=== PATIENT | male | born 1975 | race Caucasian/White ===

== ENCOUNTER 2023-01-01 18:26 | Emergency (ER) | payer SELFPAY ==
[~2023-01-01] VITALS: Ht 182 cm; Wt 100.0 kg
[2023-01-01 18:38] LABS: GLUCOSE, URINE (UA) NEGATIVE (NEGATIVE); KETONES,URINE TRACE (NEGATIVE); LEUKOCYTE ESTERASE ,URINE NEGATIVE (NEGATIVE); NITRITE,URINE POSITIVE (NEGATIVE); PH,URINE 6.5 (5-9); PROTEIN,URINE 2+ (NEGATIVE)
[2023-01-01] MEDS ORDERED: NS IV 1000 ML 1,000 ML IV STA (18:38)
[2023-01-01 18:46] LABS: BACTERIA,URINE MODERATE /HPF; BILIRUBIN,URINE 1+ (NEGATIVE); CLARITY,URINE CLOUDY; COLOR,URINE BROWN; RBC,URINE TNTC /HPF
[2023-01-01 18:47] LABS: BASOPHILS # (AUTO) 0.1 10^3/uL (0.0-0.1); BASOPHILS % (AUTO) 1 % (0-10); EOSINOPHILS # (AUTO) 0.1 10^3/uL (0.0-0.3); EOSINOPHILS % (AUTO) 1 % (0-10); HEMATOCRIT 47 % (40-54); HEMOGLOBIN 16.7 g/dL (13.3-17.7); LYMPHOCYTES # (AUTO) 2.2 10^3/uL (1.0-4.0); LYMPHOCYTES % (AUTO) 26 % (12-44); MEAN CORPUSCULAR HEMOGLOBIN 32 pg (25-34); MEAN CORPUSCULAR HGB CONC 36 g/dL (32-36); MEAN CORPUSCULAR VOLUME 91 fL (80-99); MEAN PLATELET VOLUME 11.4 fL (9.0-12.2); MONOCYTES # (AUTO) 0.5 10^3/uL (0.0-1.0); MONOCYTES % (AUTO) 6 % (0-12); NEUTROPHILS # (AUTO) 5.6 10^3/uL (1.8-7.8); NEUTROPHILS % (AUTO) 65 % (42-75); PLATELET COUNT 185 10^3/uL (130-400); WHITE BLOOD COUNT 8.5 10^3/uL (4.3-11.0)
[2023-01-01 18:50] LABS: AMPHETAMINE SCREEN, URINE NEGATIVE (NEGATIVE); BARBITURATE SCREEN URINE NEGATIVE (NEGATIVE); BENZODIAZEPINES SCREEN URINE NEGATIVE (NEGATIVE); CANNABINOID SCREEN, URINE POSITIVE (NEGATIVE); COCAINE SCREEN URINE NEGATIVE (NEGATIVE); METHADONE STAT NEGATIVE (NEGATIVE); OPIATE SCREEN URINE NEGATIVE (NEGATIVE); OXYCODONE STAT NEGATIVE (NEGATIVE); PROPOXYPHENE STAT NEGATIVE (NEGATIVE); TRICYCLIC ANTIDEPRESSANTS SCRE NEGATIVE (NEGATIVE)
[2023-01-01] MEDS ORDERED: NS 100 ML (IVPB) BAG IV ONE (19:00)
[2023-01-01] MEDS ORDERED: IOHEXOL 350 MG/ML 100 ML (OMNIPAQUE 350) VIAL IV ONE (19:00)
[2023-01-01] MEDS ORDERED: HOLD METFORMIN - RECEIVED CONTRAST 20 ML VIAL IV SCH (19:00)
[2023-01-01 19:01] LABS: INR 0.9 (0.8-1.4); PROTHROMBIN TIME PATIENT 12.3 SEC (12.2-14.7)
[2023-01-01 19:08] LABS: ALBUMIN 4.2 GM/DL (3.2-4.5); ALKALINE PHOSPHATASE 117 U/L (40-136); BILIRUBIN,TOTAL 0.2 MG/DL (0.1-1.0); BUN/CREATININE RATIO 16; CALCIUM 9.6 MG/DL (8.5-10.1); CARBON DIOXIDE 25 MMOL/L (21-32); CHLORIDE 101 MMOL/L (98-107); CREATININE SERUM 1.03 MG/DL (0.60-1.30); GFR ESTIMATED 91; GLUCOSE 139 MG/DL (70-105); POTASSIUM 4.1 MMOL/L (3.6-5.0); SODIUM 138 MMOL/L (135-145); TOTAL PROTEIN 6.9 GM/DL (6.4-8.2)
--- NOTE | 2023-01-01 19:15 | ED GU-Male ---
General Chief Complaint: - Reproductive Stated Complaint: BLEEDING WHILE URINATING, LIGHT HEADED Nursing Triage Note: Patient has presented to ER with cc of blood in his urine that started this afternoon. Source: patient History of Present Illness Date Seen by Provider: Jan 01, 2023 Time Seen by Provider: 18:31 Initial Comments 47-year-old male presenting with complaints of hematuria and abdominal pain. He states he noticed his urine was a little darker last night but did not specifically see blood. Around noon today he saw gross blood in his urine. He had felt a little lightheaded when he saw the blood in his urine. Since then he is urinated at least 3-4 more times and had blood every time. He continues to deny any pain in his abdomen or pelvis. He denies pain with urination. He has had no nausea, vomiting, fever, chills, bleeding from his gums, blood in his stools, dark tarry stool. He denies having problems with blood in his urine previously. He has no known history of kidney stones. Timing/Duration: this afternoon Severity/Quality: severe (grossly bloody urine without pain) Activities at Onset: other (urinating) Prior Genitourinary Problems: none Sexual [place] History: less than 2 months ago, single partner Modifying Factors: Worsens With Urinating (blood in urine) Associated Symptoms: No abdominal pain, No diaphoresis, No dysuria, No fever/chills, No loss of bladder control, No lower back pain, No lumps, No mass, No nausea/vomiting, No nocturia, No polyuria, No swelling, No syncope, No urinary frequency Allergies and Home Medications Allergies Coded Allergies: No Known Drug Allergies (Unverified , 01/01/23) Patient Home Medication List Home Medication List Reviewed: Yes Review of Systems Review of Systems Constitutional: No chills, No fever EENTM: no symptoms reported Respiratory: no symptoms reported Cardiovascular: no symptoms reported Gastrointestinal: no symptoms reported Genitourinary: see HPI, hematuria Musculoskeletal: no symptoms reported Skin: No rash Psychiatric/Neurological: No Symptoms Reported Past Rkcrver-Fnzgkq-Vcdoap Hx Patient Social History Tobacco Use?: Yes Tobacco type used: Cigarettes Smoking Status: Heavy Tobacco Smoker Use of E-Cig and/or Vaping dev: No Substance use?: No Alcohol Use?: Yes Alcohol type: Beer Alcohol Frequency: Daily Past Medical History Surgeries: Yes Appendectomy Physical Exam Vital Signs Vital Signs - First Documented 01/01/23 18:35 Temp 37.7 Pulse 84 Resp 16 B/P (MAP) 143/80 (101) Pulse Ox 96 O2 Delivery Room Air Capillary Refill : Height, Weight, BMI Height: '" Weight: lbs. oz. kg; 30.00 BMI Method: General Appearance: WD/WN, no apparent distress HEENT: PERRL/EOMI, pharynx normal Neck: non-tender, full range of motion, supple, normal inspection Cardiovascular: normal peripheral pulses, regular rate, rhythm Respiratory: chest non-tender, lungs clear, normal breath sounds, no respiratory distress, no accessory muscle use Gastrointestinal: normal bowel sounds, non tender, soft, no pulsatile mass Extremities: normal range of motion, non-tender, normal capillary refill Neurologic/Psychiatric: alert, oriented x 3 Skin: normal color, warm/dry Progress/Results/Core Measures Suspected Sepsis SIRS Temperature: Pulse: 84 Respiratory Rate: 16 Laboratory Tests 01/01/23 18:40: White Blood Count 8.5 Blood Pressure 143 /80 Mean: 101 Laboratory Tests 01/01/23 18:40: Creatinine 1.03, INR Comment 0.9, Platelet Count 185, Total Bilirubin 0.2 Results/Orders Lab Results Laboratory Tests Test 01/01/23 18:32 01/01/23 18:40 Range/Units Urine Color BROWN H Urine Clarity CLOUDY Urine pH 6.5 5-9 Urine Specific [place] >=1.030 1.016-1.022 Urine Protein 2+ H NEGATIVE Urine Glucose (UA) NEGATIVE NEGATIVE Urine Ketones TRACE H NEGATIVE Urine Nitrite POSITIVE H NEGATIVE Urine Bilirubin 1+ H NEGATIVE Urine Urobilinogen 1.0 < = 1.0 MG/DL Urine Leukocyte Esterase NEGATIVE NEGATIVE Urine RBC (Auto) 3+ H NEGATIVE Urine RBC TNTC H /HPF Urine WBC NONE /HPF Urine Crystals NONE /LPF Urine Bacteria MODERATE H /HPF Urine Casts PRESENT /LPF Urine Red Blood Cell Casts 5-10 H /LPF Urine Mucus NEGATIVE /LPF Urine Culture Indicated YES Urine Opiates Screen NEGATIVE NEGATIVE Urine Oxycodone Screen NEGATIVE NEGATIVE Urine Methadone Screen NEGATIVE NEGATIVE Urine Propoxyphene Screen NEGATIVE NEGATIVE Urine Barbiturates Screen NEGATIVE NEGATIVE Ur Tricyclic Antidepressants Screen NEGATIVE NEGATIVE Urine Phencyclidine Screen NEGATIVE NEGATIVE Urine Amphetamines Screen NEGATIVE NEGATIVE Urine Methamphetamines Screen NEGATIVE NEGATIVE Urine Benzodiazepines Screen NEGATIVE NEGATIVE Urine Cocaine Screen NEGATIVE NEGATIVE Urine Cannabinoids Screen POSITIVE H NEGATIVE White Blood Count 8.5 4.3-11.0 10^3/uL Red Blood Count 5.19 4.30-5.52 10^6/uL Hemoglobin 16.7 13.3-17.7 g/dL Hematocrit 47 40-54 % Mean Corpuscular Volume 91 80-99 fL Mean Corpuscular Hemoglobin 32 25-34 pg Mean Corpuscular Hemoglobin Concent 36 32-36 g/dL Red Cell Distribution Width 13.6 10.0-14.5 % Platelet Count 185 130-400 10^3/uL Mean Platelet Volume 11.4 9.0-12.2 fL Immature Granulocyte % (Auto) 1 % Neutrophils (%) (Auto) 65 42-75 % Lymphocytes (%) (Auto) 26 12-44 % Monocytes (%) (Auto) 6 0-12 % Eosinophils (%) (Auto) 1 0-10 % Basophils (%) (Auto) 1 0-10 % Neutrophils # (Auto) 5.6 1.8-7.8 10^3/uL Lymphocytes # (Auto) 2.2 1.0-4.0 10^3/uL Monocytes # (Auto) 0.5 0.0-1.0 10^3/uL Eosinophils # (Auto) 0.1 0.0-0.3 10^3/uL Basophils # (Auto) 0.1 0.0-0.1 10^3/uL Immature Granulocyte # (Auto) 0.0 0.0-0.1 10^3/uL Prothrombin Time 12.3 12.2-14.7 SEC INR Comment 0.9 0.8-1.4 Activated Partial Thromboplast Time 26 24-35 SEC Sodium Level 138 135-145 MMOL/L Potassium Level 4.1 3.6-5.0 MMOL/L Chloride Level 101 98-107 MMOL/L Carbon Dioxide Level 25 21-32 MMOL/L Anion Gap 12 5-14 MMOL/L Blood Urea Nitrogen 16 7-18 MG/DL Creatinine 1.03 0.60-1.30 MG/DL Estimat Glomerular Filtration Rate 91 BUN/Creatinine Ratio 16 Glucose Level 139 H 70-105 MG/DL Calcium Level 9.6 8.5-10.1 MG/DL Corrected Calcium 9.4 8.5-10.1 MG/DL Total Bilirubin 0.2 0.1-1.0 MG/DL Aspartate Amino Transf (AST/SGOT) < 5 L 5-34 U/L Alanine Aminotransferase (ALT/SGPT) < 5 0-55 U/L Alkaline Phosphatase 117 40-136 U/L Total Protein 6.9 6.4-8.2 GM/DL Albumin 4.2 3.2-4.5 GM/DL My Orders Orders - LESLIE ALFARO MD Ua Culture If Indicated (01/01/23 18:31) Drug Screen Stat (Urine) (01/01/23 18:31) Comprehensive Metabolic Panel (01/01/23 18:38) Ed Iv/Invasive Line Start (01/01/23 18:38) Cbc With Automated Diff (01/01/23 18:38) Ct Abdomen/Pelvis Wo (01/01/23 18:38) Protime With Inr (01/01/23 18:38) Partial Thromboplastin Time (01/01/23 18:38) Ns Iv 1000 Ml (Sodium Chloride 0.9%) (01/01/23 18:38) Urine Culture (01/01/23 18:32) Ct Abdomen/Pelvis W (01/01/23 18:48) Iohexol Injection (Omnipaque 350 Mg/Ml 1 (01/01/23 19:00) Di Iv Start (Assessment) .IV start (01/01/23 18:56) Received Contrast (Hold Metformin- Contr (01/01/23 19:00) Ns (Ivpb) (Sodium Chloride 0.9% Ivpb Bag (01/01/23 19:00) Ct Abdomen/Pelvis W Wo (01/01/23 19:30) Medications Given in ED Current Medications Medications Dose Ordered Sig/Fady Route Start Time Stop Time Status Last Admin Dose Admin Iohexol 80 ml ONCE ONCE IV 01/01/23 19:00 01/01/23 19:01 DC 01/01/23 19:03 80 ML Sodium Chloride 100 ml ONCE ONCE IV 01/01/23 19:00 01/01/23 19:01 DC 01/01/23 19:03 100 ML Vital Signs/I&O 01/01/23 01/01/23 18:35 21:22 Temp 37.7 36.6 Pulse 84 76 Resp 16 18 B/P (MAP) 143/80 (101) 133/77 Pulse Ox 96 96 O2 Delivery Room Air Room Air Capillary Refill : Blood Pressure Mean: 101 Progress Note #1: Progress Note Potential diagnosis of kidney stone, hematuria from infection, bladder mass, kidney mass, cystitis, dehydration. Obtain basic labs to look at complete blood count, comprehensive metabolic profile, coagulation factors, urinalysis, urine drug screen in case they need to give him any narcotic pain medicines. Establish peripheral IV access and administer normal saline 1 L IV fluid bolus for hydration. Obtain CT scan of the abdomen pelvis without contrast to evaluate for kidney stone or mass. Progress Note #2: Progress Note Complete blood count did not show an elevated white blood cell count for infection or low hemoglobin for anemia. His comprehensive metabolic profile was not showing acute renal failure or electrolyte imbalance. Urinalysis was concentrated with specific gravity greater than 1.030 and he had too numerous to count red blood cells per high-power field. The CT scan of the abdomen and pelvis without contrast showed a large heterogeneous mass of the left kidney. Added on a CT scan with IV contrast to further evaluate this. Patient continues to deny any pain and tolerated getting fluids and treatment here in the ED. Progress Note #3: Progress Note I reviewed the radiologist report on the CT scan of the abdomen and pelvis with or without IV contrast. They reported a multilobulated mass over 13 cm on the left kidney. This area is concerning for cancer. They did not see any obstruction or lymphadenopathy. I updated the patient that his labs at all looked okay especially of the renal function was normal. Counseled that with the large mass on the left kidney he would need to follow-up with urology urgently. I did check in with Dr. Pruitt, the on-call surgeon, for his opinion of how urgently I should try and get the patient referred to urology. As he was otherwise hemodynamically stable and not showing acute lab abnormalities he urgently needs to see urology for further work-up but would not have to be emergently admitted at this time. Counseled patient on potential urinary retention symptoms if he had a blood clot that occluded his bladder. Given information for urology with Dr. Jim out of [place] [facility] out of [place]. Advised to call in the morning and let them know that he was following up from an emergency department visit with hematuria and a large mass on the left kidney. In the meantime drink plenty of water and fluids to help flush out his kidneys and try to get the urine is clear as possible. Watch for signs of retention and return to be seen immediately if that occurs. Given a note to be off work this next week so he could make calls and get follow-up arranged with urology Diagnostic Imaging Diagonstic Imaging: CT Plain Films/CT/US/NM/MRI: abdomen, pelvis Comments NAME: GABRIELLA HURTADO [facility] REC#: [id number] PT STATUS: REG ER : 1975 PHYSICIAN: LESLIE ALFARO MD ADMIT DATE: 01/01/23/ER FS Draft Date of Exam:01/01/23 CT ABDOMEN/PELVIS W WO PROCEDURE: CT abdomen and pelvis with and without contrast. TECHNIQUE: Precontrast acquisitions were acquired through the abdomen and pelvis. Multiple contiguous axial images were obtained through the abdomen and pelvis after the administration of intravenous contrast. Auto Exposure Controls were utilized during the CT exam to meet ALARA standards for radiation dose reduction. INDICATION: Hematuria. COMPARISON: None. FINDINGS: There is a large complex mass in the left kidney measuring approximately 13.5 x 11.2 x 12.9 cm. The left renal vein appears normally opacified. No lymphadenopathy is identified. The right kidney is negative. No right hydronephrosis. Lung bases are clear. The liver, gallbladder, pancreas, spleen and adrenals are negative. No free intraperitoneal air or fluid. No evidence of bowel obstruction. No acute osseous finding. IMPRESSION: Large mass in the left kidney measuring up to 13.5 cm should be considered malignant until proven otherwise. No left renal vein thrombosis or lymphadenopathy is identified. Dictated on workstation # [id number] Dict: 01/01/231947 Trans: 01/01/231953 [facility] [id number] Interpreted by: ANGELITO HIRSCH MD Electronically signed by: Reviewed: Reviewed by Me Departure Impression Primary Impression: Hematuria Qualified Codes: R31.0 - Gross hematuria Additional Impression: Mass of left kidney Disposition: HOME, SELF-CARE Condition: Stable Departure-Patient Inst. Decision time for Depature: 21:13 Referrals: NO,LOCAL PHYSICIAN (PCP) Primary Care Physician [facility] Patient Instructions: Blood in Urine (Hematuria), Adult ED Add. Discharge Instructions: Stay well-hydrated and drink plenty of fluids to help keep your urine is clear as possible. If you are not unable to urinate and or developing pressure pain in the bladder area you would need to be seen again as you likely would need a catheter and irrigation of the bladder to flush out blood clots and bleeding. If this were to happen you would have to be admitted to a hospital that has urology such as in [place] or [place]. [facility] out of [place] is located at [address], [place] [address]. Their phone number is [phone] Dr. Juan Jose Jim is a urologist out of [facility]. He has a clinic at [address] [place] [id number]. Phone number [phone] In the morning call urology and advise them that you were seen in the ER and found to have a kidney mass and blood in your urine. You would need to be seen as soon as possible for further evaluation and treatment of this. All discharge instructions reviewed with patient and/or family. Voiced understanding. Work/School Note: Work Release Form Date Seen in the Emergency Department: Jan 01, 2023 Return to Work: Jan 09, 2023 Restrictions: Need Release from Doctor LESLIE ALFARO MD Jan 01, 2023 19:15
[2023-01-01 19:20] LABS: ALANINE AMINOTRANSFERASE < 5 U/L (0-55)
--- NOTE | 2023-01-01 19:56 | Diagnostic Imaging Report ---
PROCEDURE: CT abdomen and pelvis with and without contrast. TECHNIQUE: Precontrast acquisitions were acquired through the abdomen and pelvis. Multiple contiguous axial images were obtained through the abdomen and pelvis after the administration of intravenous contrast. Auto Exposure Controls were utilized during the CT exam to meet ALARA standards for radiation dose reduction. INDICATION: Hematuria. COMPARISON: None. FINDINGS: There is a large complex mass in the left kidney measuring approximately 13.5 x 11.2 x 12.9 cm. The left renal vein appears normally opacified. No lymphadenopathy is identified. The right kidney is negative. No right hydronephrosis. Lung bases are clear. The liver, gallbladder, pancreas, spleen and adrenals are negative. No free intraperitoneal air or fluid. No evidence of bowel obstruction. No acute osseous finding. IMPRESSION: Large mass in the left kidney measuring up to 13.5 cm should be considered malignant until proven otherwise. No left renal vein thrombosis or lymphadenopathy is identified. Dictated by: Dictated on workstation # [id number]
[2023-01-01 21:22] VITALS: BP 133/77
== END 2023-01-01 21:27 | disposition home or self-care (01) ==
LOC: ER FS 18:29
DX: N28.89 Other specified disorders of kidney and ureter (principal); F17.210 Nicotine dependence, cigarettes, uncomplicated; Z28.310 Unvaccinated for COVID-19
CPT/HCPCS: 36415; 74176; 74177; 74178; 80053; 80306; 81000; 85025; 85610; 85730; 87088; Q9967